=== PATIENT | male | born 1995 | race Caucasian/White ===

== ENCOUNTER 2018-12-28 02:45 | Emergency (ER) | payer SELFPAY ==
[~2018-12-28] VITALS: Ht 177.8 cm; Wt 84.1 kg
--- NOTE | 2018-12-28 02:55 | NUR ---
PT TO XRAY
[2018-12-28] MEDS ORDERED: fentaNYL/PF 50MCG/1 ML 2ML syringe IV ONE (03:00)
[2018-12-28] MEDS ORDERED: ondansetron/PF 4mg/2ml inj IV ONE (03:00)
[2018-12-28] MEDS ORDERED: etomidate 2mg/ml inj. IV ONE (03:00)
[2018-12-28] MEDS ORDERED: MIDAZolam 5mg/ml 2ml vial IV ONE (03:00)
[2018-12-28] MEDS ORDERED: HYDR-3965 PO (03:04)
[2018-12-28] MEDS ORDERED: ONDA4TAB6 PO (03:04)
[2018-12-28 04:42] VITALS: BP 107/48
== END 2018-12-28 05:05 | disposition home or self-care (01) ==
LOC: ER 02:46
DX: S43.015A Anterior dislocation of left humerus, initial encounter (principal); S43.035A Inferior dislocation of left humerus, initial encounter; Z88.1 Allergy status to other antibiotic agents; W50.0XXA Accidental hit or strike by another person, initial encounter; Y93.89 Activity, other specified; Y92.89 Other specified places as the place of occurrence of the external cause; Y99.8 Other external cause status
CPT/HCPCS: 23650; 73020; 73030; 94760; 99284; J2250; J2405; J3010; J3490

== ENCOUNTER 2019-01-22 13:06 | Outpatient (CLI) | payer SELFPAY ==
[2019-01-22 13:06] VITALS: BP 131/66
[~2019-01-22 13:06] MED LIST: HYDR-3965 PO; ONDA4TAB6 PO
== END 2019-01-22 14:00 | disposition home or self-care (01) ==
LOC: ORTHO 13:06
PROVIDERS: ATTEND Nurse Practitioner Family
DX: S43.085A Other dislocation of left shoulder joint, initial encounter (principal); F17.200 Nicotine dependence, unspecified, uncomplicated; Z88.1 Allergy status to other antibiotic agents; W19.XXXA Unspecified fall, initial encounter; Y93.89 Activity, other specified; Y92.89 Other specified places as the place of occurrence of the external cause; Y99.8 Other external cause status
CPT/HCPCS: 73030; 99213

== ENCOUNTER 2019-02-26 09:33 | Outpatient (CLI) | payer SELFPAY ==
[~2019-02-26 09:33] MED LIST changes: -HYDR-3965 PO
[2019-02-26 10:27] VITALS: BP 114/63
== END 2019-02-26 10:21 | disposition home or self-care (01) ==
LOC: ORTHO 09:33
PROVIDERS: ATTEND Orthopaedic Surgery
DX: S43.085D Other dislocation of left shoulder joint, subsequent encounter (principal); F17.210 Nicotine dependence, cigarettes, uncomplicated; Z88.8 Allergy status to other drugs, medicaments and biological substances; X58.XXXD Exposure to other specified factors, subsequent encounter
CPT/HCPCS: 73030; 99213